=== PATIENT | male | born 1985 | race African-American/Black ===

== ENCOUNTER 2022-09-30 12:10 | Emergency (ER) | payer OTHER ==
--- OUTSIDE RECORDS SUMMARY | 2022-09-30 12:15 | XMS REPORT | Continuity of Care Document ---
:1985 Author Organization [facility] t Address [address] [place] [address] Care Team Providers Name Role Phone COCO GOOD Primary Care Physician Unavailable JAYCE WALDRON Attending Clinician Unavailable LARRY OLIVERA Attending Clinician Unavailable PEG ALEMAN Attending Clinician Unavailable REBECA FREITAS Attending Clinician Unavailable LARRY OLIVERA Admitting Clinician Unavailable PEG ALEMAN Admitting Clinician Unavailable Problems Condition Condition Condition Status Onset Resolution Last Treating Co mments Source Name Details Category Date Date Treatment Clinician Date Abscess of Problem Active CESAR MANTILLA abdominal S wall Health Attention Problem Active VICKY U deficit S hyperactiv Health ity disorder (ADHD) Intra-abdo Problem Active CESAR MANTILLA hernandez S adhesions Health Low back Problem Inactiv VICKY U pain e S Health Abdominal Problem Inactiv CESAR MANTILLA fluid e S collection Health Hematochez Problem Inactiv CHRI BREANA ia e S Health Postoperat Problem Inactiv CHRI BREANA reinier e S abdominal Health pain Nausea Problem Inactiv [facility] e S Health Encounter Problem Inactiv CESAR MANTILLA for change e S or removal Health of drains Allergies, Adverse Reactions, Alerts Allergy Allergy Status Severity Reaction(s) Onset Inactive Treating Comm ents Source Name Type Date Date Clinician Hydrocod Allergy Active Mild [facility]RISTU one to 6-22 S substanc 00:00: Health e 00 Acetamin Allergy Active Mild [facility] ophen to 6-22 S substanc 00:00: Health e 00 Social History Social Habit Start Date Stop Date Quantity Comments Source History of tobacco [facility] Health use Sex Assigned At [birth year] Male [facility] Health 00:00:00 00:00:00 Smoking Status Start Date Stop Date Source Smokes tobacco daily (finding) 2022-03-23 13:28:00 [facility] Medications Ordered Filled Start Stop Current Ordering Indication Dosage Frequency Signature Comments Components Source Medication Medication Date Date Medication? Clinician (SIG) Name Name Levofloxaci No 750mg Daily CHRI BREANA n 6-22 S (Levaquin) 15:13: Health 750 Mg TAB 00 Oxycodone/A No 1tab Every 4 CHR ISTU cetaminophe 6-22 Hours as S n (Percocet 15:13: needed for Health 5-325) 1 00 Pain Each TAB Doxycycline 2021- No 100mg Twice A C HRISTU Monohydrate 02-15 06-17 Day S (Doxycyclin 09:52: 00:00 Healt h e) 100 Mg 00 :00 CAPSULE Oxycodone/A 2021- No 1tab Every 6 CH RISTU cetaminophe - 05-30 Hours S n (Percocet 09:52: 00:00 Healt h 5-325) 1 00 :00 Each TAB Acetaminoph 2021- No 1tab Every 6 CH RISTU en/Hydrocod -23 05-25 Hours as S one Bitart 21:45: 00:00 needed for Health (Declo 00 :00 Severe 5/325) 1 Pain(7-10) Each TAB Clindamycin 2021- No 450mg Three CHR ISTU Hcl -23 05-25 Times A S (Cleocin) 21:45: 00:00 Day Health 150 Mg CAP 00 :00 Immunizations Ordered Immunization Filled Immunization Date Status Commen ts Source Name Name Covid-19 Pfizer Pedi 2021-11-07 Completed [facility] Health 00:00:00 Vital Signs Vital Name Observation Time Observation Value Comments Source BP Diastolic 2022-03-23 18:11:00 78 mm[Hg] [facility] BP Systolic 2022-03-23 18:11:00 138 mm[Hg] [facility] Heart Rate 2022-03-23 18:11:00 72 /min [facility] Respiratory rate 2022-03-23 18:11:00 16 /min [facility] Body Temperature 2022-03-23 18:11:00 98.0 [degF] [facility] BP Diastolic 2022-03-23 14:34:00 78 mm[Hg] [facility] BP Systolic 2022-03-23 14:34:00 138 mm[Hg] [facility] Heart Rate 2022-03-23 14:34:00 72 /min [facility] Respiratory rate 2022-03-23 14:34:00 16 /min [facility] BP Diastolic 2022-03-23 12:42:00 85 mm[Hg] [facility] BP Systolic 2022-03-23 12:42:00 131 mm[Hg] [facility] Heart Rate 2022-03-23 12:42:00 80 /min [facility] Respiratory rate 2022-03-23 12:42:00 16 /min [facility] Body Temperature 2022-03-23 12:42:00 98.0 [degF] [facility] BP Diastolic 2022-03-16 08:00:00 58 mm[Hg] [facility] BP Systolic 2022-03-16 08:00:00 138 mm[Hg] [facility] Heart Rate 2022-03-16 08:00:00 99 /min [facility] Respiratory rate 2022-03-16 08:00:00 16 /min [facility] Body Temperature 2022-03-16 08:00:00 98.0 [degF] [facility] BP Diastolic 2022-03-16 05:29:00 41 mm[Hg] [facility] BP Systolic 2022-03-16 05:29:00 105 mm[Hg] [facility] Heart Rate 2022-03-16 05:29:00 69 /min [facility] Respiratory rate 2022-03-16 05:29:00 18 /min [facility] Body Temperature 2022-03-16 05:29:00 97.7 [degF] [facility] BP Diastolic 2022-03-16 00:54:00 54 mm[Hg] [facility] BP Systolic 2022-03-16 00:54:00 118 mm[Hg] [facility] Heart Rate 2022-03-16 00:54:00 77 /min [facility] Respiratory rate 2022-03-16 00:54:00 18 /min [facility] Body Temperature 2022-03-16 00:54:00 97.7 [degF] [facility] BP Diastolic 2022-03-15 20:37:00 72 mm[Hg] [facility] BP Systolic 2022-03-15 20:37:00 114 mm[Hg] [facility] Heart Rate 2022-03-15 20:37:00 83 /min [facility] Respiratory rate 2022-03-15 20:37:00 18 /min [facility] Body Temperature 2022-03-15 20:37:00 97.5 [degF] [facility] BP Diastolic 2022-03-15 18:26:00 78 mm[Hg] [facility] BP Systolic 2022-03-15 18:26:00 140 mm[Hg] [facility] Heart Rate 2022-03-15 18:26:00 94 /min [facility] Respiratory rate 2022-03-15 18:26:00 18 /min [facility] BP Diastolic 2022-03-15 18:15:00 94 mm[Hg] [facility] BP Systolic 2022-03-15 18:15:00 129 mm[Hg] [facility] Heart Rate 2022-03-15 18:15:00 86 /min [facility] Respiratory rate 2022-03-15 18:15:00 16 /min [facility] Body Temperature 2022-03-15 18:15:00 98.5 [degF] [facility] BP Diastolic 2022-03-15 17:45:00 82 mm[Hg] [facility] BP Systolic 2022-03-15 17:45:00 139 mm[Hg] [facility] Heart Rate 2022-03-15 17:45:00 74 /min [facility] Body Temperature 2022-03-15 17:45:00 96.7 [degF] [facility] BP Diastolic 2022-03-15 17:30:00 64 mm[Hg] [facility] BP Systolic 2022-03-15 17:30:00 130 mm[Hg] [facility] Heart Rate 2022-03-15 17:30:00 77 /min [facility] Respiratory rate 2022-03-15 17:30:00 18 /min [facility] Body Temperature 2022-03-15 17:30:00 97.5 [degF] [facility] BP Diastolic 2022-03-15 17:15:00 75 mm[Hg] [facility] BP Systolic 2022-03-15 17:15:00 124 mm[Hg] [facility] Heart Rate 2022-03-15 17:15:00 81 /min [facility] Respiratory rate 2022-03-15 17:15:00 18 /min [facility] Body Temperature 2022-03-15 17:15:00 97.5 [degF] [facility] BP Diastolic 2022-03-15 17:00:00 75 mm[Hg] [facility] BP Systolic 2022-03-15 17:00:00 131 mm[Hg] [facility] Heart Rate 2022-03-15 17:00:00 86 /min [facility] Respiratory rate 2022-03-15 17:00:00 18 /min [facility] Body Temperature 2022-03-15 17:00:00 97.4 [degF] [facility] BP Diastolic 2022-03-15 16:45:00 77 mm[Hg] [facility] BP Systolic 2022-03-15 16:45:00 130 mm[Hg] [facility] Heart Rate 2022-03-15 16:45:00 83 /min [facility] Respiratory rate 2022-03-15 16:45:00 18 /min [facility] Body Temperature 2022-03-15 16:45:00 97.7 [degF] [facility] BP Diastolic 2022-03-15 16:30:00 72 mm[Hg] [facility] BP Systolic 2022-03-15 16:30:00 120 mm[Hg] [facility] Heart Rate 2022-03-15 16:30:00 83 /min [facility] Respiratory rate 2022-03-15 16:30:00 18 /min [facility] Body Temperature 2022-03-15 16:30:00 97.4 [degF] [facility] BP Diastolic 2022-03-15 16:25:00 74 mm[Hg] [facility] BP Systolic 2022-03-15 16:25:00 127 mm[Hg] [facility] Heart Rate 2022-03-15 16:25:00 65 /min [facility] Respiratory rate 2022-03-15 16:25:00 16 /min [facility] BP Diastolic 2022-03-15 16:20:00 80 mm[Hg] [facility] BP Systolic 2022-03-15 16:20:00 125 mm[Hg] [facility] Heart Rate 2022-03-15 16:20:00 60 /min [facility] Respiratory rate 2022-03-15 16:20:00 16 /min [facility] BP Diastolic 2022-03-15 16:15:00 79 mm[Hg] [facility] BP Systolic 2022-03-15 16:15:00 127 mm[Hg] [facility] Heart Rate 2022-03-15 16:15:00 69 /min [facility] Respiratory rate 2022-03-15 16:15:00 15 /min [facility] BP Diastolic 2022-03-15 16:10:00 81 mm[Hg] [facility] BP Systolic 2022-03-15 16:10:00 127 mm[Hg] [facility] Heart Rate 2022-03-15 16:10:00 78 /min [facility] Respiratory rate 2022-03-15 16:10:00 15 /min [facility] BP Diastolic 2022-03-15 16:05:00 81 mm[Hg] [facility] BP Systolic 2022-03-15 16:05:00 135 mm[Hg] [facility] Heart Rate 2022-03-15 16:05:00 63 /min [facility] Respiratory rate 2022-03-15 16:05:00 16 /min [facility] BP Diastolic 2022-03-15 16:00:00 76 mm[Hg] [facility] BP Systolic 2022-03-15 16:00:00 124 mm[Hg] [facility] Heart Rate 2022-03-15 16:00:00 75 /min [facility] Respiratory rate 2022-03-15 16:00:00 14 /min [facility] BP Diastolic 2022-03-15 15:55:00 83 mm[Hg] [facility] BP Systolic 2022-03-15 15:55:00 136 mm[Hg] [facility] Heart Rate 2022-03-15 15:55:00 77 /min [facility] Respiratory rate 2022-03-15 15:55:00 13 /min [facility] 2022-03-15 15:50:00 81 mm[Hg] [facility] Health BP Systolic 2022-03-15 15:50:00 132 mm[Hg] [facility] Health Heart Rate 2022-03-15 15:50:00 78 /min [facility] Health Respiratory rate 2022-03-15 15:50:00 14 /min [facility] Health BP Diastolic 2022-03-15 15:45:00 81 mm[Hg] [facility] BP Systolic 2022-03-15 15:45:00 135 mm[Hg] [facility] Heart Rate 2022-03-15 15:45:00 91 /min [facility] Respiratory rate 2022-03-15 15:45:00 12 /min [facility] Di[facility] 2022-03-15 15:39:00 64 mm[Hg] [facility] BP Systolic 2022-03-15 15:39:00 120 mm[Hg] [facility] Heart Rate 2022-03-15 15:39:00 72 /min [facility] Respiratory rate 2022-03-15 15:39:00 20 /min [facility] Body Temperature 2022-03-15 15:39:00 97.3 [degF] [facility] BP Diastolic 2022-03-15 09:00:00 75 mm[Hg] [facility] BP Systolic 2022-03-15 09:00:00 126 mm[Hg] [facility] Heart Rate 2022-03-15 09:00:00 71 /min [facility] Respiratory rate 2022-03-15 09:00:00 18 /min [facility] Body Temperature 2022-03-15 09:00:00 98.2 [degF] [facility] [place] Procedures Procedure Date / Time Performed Performing Clinician [facility] e Computed tomography of 2022-03-23 00:00:00 [facility] abdomen and pelvis with contrast RELEASE OMENTUM, 2022-03[facility]15 [facility]OS[facility] RELEASE PERITONEUM, 2022-03-15 00:00:00 [facility] PERCUTANEOUS ENDOSCOPIC APPROACH DRAINAGE OF ABD WALL WITH 2022-03-15 00:00:00 [facility] DRAIN DEV, PERC ENDO APPROACH ROBOTIC ASSISTED PROCEDURE 2022-03-15 00:00:00 C [facility] OF TRUNK, PERC ENDO APPROACH ECG (electrocardiogram) 2022-03-10 00:00:00 [facility] X-ray of chest, two views 2022-03-10 00:00:00 CH [facility] 12 lead ECG interpretation 2022-03-10 00:00:00 C [facility] Encounters Start End Encounter Admission Attending Care Care Encounter Source Date/Time Date/Time Type Type Clinicians Facility Department ID 2022-02-13 Inpatient DUGLAS ARDON [id number] [facility] 19:32:00 11 [facility] 2022-02-13 Inpatient DUGLAS ARDON [id number] [facility] 19:32:00 11 [facility] 2022-03-23 2022-03-23 Departed ER DUGLAS WALDRON [id number] [facility] 12:34:00 18:12:00 Emergency JAYCE [address] [facility] 2022-03-15 2022-03-16 Discharged DUGLAS BORREGO SASKIA [id number] [facility] 08:49:00 09:50:00 Inpatient LARRY 66 [facility] 2022-02-14 2022-02-15 Inpatient ER DUGLAS ALEMAN MED [id number] [facility] 14:15:00 10:54:00 PEG 00 [facility] 2022-02-14 2022-02-15 Inpatient ER DUGLAS ALEMAN MED [id number] [facility] 14:15:00 10:54:00 PEG 00 [facility] 2022-02-13 2022-02-13 Emergency ER DUGLAS FREITAS [id number] [facility] 19:34:00 22:00:00 REBECA [id number] [facility] 2022-02-13 2022-02-13 Emergency ER DUGLAS FREITAS [id number] [facility] 19:34:00 22:00:00 REBECA [id number] [facility] 2022-02-13 2022-02-13 Emergency ER DUGLAS FREITAS [id number] [facility] 19:34:00 22:00:00 REBECA 12 S [facility] Results Test Description Test Time Test Comments Results Result Comments Source Serum or plasma chloride measurement (moles/volume) 13:15:00 Test Item Value Reference Range Interpretation Comme nts Chloride Level (test code = 2075-0) 100 98-107 [facility] or plasma carbon dioxide measurement (moles/volume) 2022-03-23 13:15:00 Test Item Value Reference Range Interpretation Comments Carbon Dioxide Level (test code = 27 21-32 8-9) [facility] or plasma anion [id number] 13:15:00 Test Item Value Reference Range Interpretation Comments Anion Gap (test code = 87163-1) 4.0 3.0-11.0 [facility] or plasma urea nitrogen measurement (mass/volume)2022-03-23 13:15:00 Test Item Value Reference Range Interpretation Comments Blood Urea Nitrogen (test code = 12.0 7.0-18.0 3094-0) [facility] or plasma creatinine measurement (mass/volume)2022-03-23 13:15:00 Test Item Value Reference Range Interpretation Comments Creatinine (test code = 2160-0) 1.170 0.700-1.30 [facility] HealthGFR estimate [id number] 13:15:00 Test Item Value Reference Range Interpretation Comments Estimat Glomerular Filtration Rate > 60 >60 (test code = 884397369) [facility]um or plasma urea nitrogen/creatinine mass [id number] 13:15:00 Test Item Value Reference Range Interpretation Comments BUN/Creatinine Ratio (test code = 10.25 3097-3) [facility] or plasma glucose measurement (mass/volume)2022-03-23 13:15:00 Test Item Value Reference Range Interpretation Comments Glucose Level (test code = 2345-7) 92 74-106 [facility]um or plasma calcium measurement (mass/volume)2022-03-23 13:15:00 Test Item Value Reference Range Interpretation Comments Calcium Level (test code = 28408-2) 10.1 8.5-10.1 [facility]um or plasma total bilirubin measurement (mass/volume) 2022-03-23 13:15:00 Test Item Value Reference Range Interpretation Comments Total Bilirubin (test code = 1974-2) 0.3 0.2-1.0 [facility]um or plasma aspartate aminotransferase measurement (enzymatic activity/volume)2022-03-23 13:15:00 Test Item Value Reference Range Interpretation Comments Aspartate Amino Transf (AST/SGOT) (test 40 15-37 code = 1920-8) [facility] Health[facility]um or plasma alanine aminotransferase measurement (enzymatic activity/volume)2022-03-23 13:15:00 Test Item Value Reference Range Interpretation Comments Alanine Aminotransferase (ALT/SGPT) 87 16-61 (test code = 1742-6) [facility] Health[facility]um or plasma protein measurement (mass/volume)2022-03-23 13:15:00 Test Item Value Reference Range Interpretation Comments Total Protein (test code = 2885-2) 9.3 6.4-8.2 [facility] HealthSerum or plasma albumin measurement (mass/volume)2022-03-23 13:15:00 Test Item Value Reference Range Interpretation Comments Albumin (test code = 1751-7) 3.6 3.4-5.0 [facility] HealthSerum or plasma alkaline phosphatase measurement (enzymatic activity/volume)2022-03-23 13:15:00 Test Item Value Reference Range Interpretation Comments Alkaline Phosphatase (test code = 141 45-117 6768-6) [facility] HealthLactate ser/[id number] 13:15:00 Test Item Value Reference Range Interpretation Comments Lactic Acid Level (test code = 2524-7) 1.1 0.4-1.9 [facility] HealthSerum or plasma procalcitonin measurement (mass/volume)2022-03-23 13:15:00 Test Item Value Reference Range Interpretation Comments Procalcitonin (test code = 14225-6) < 0.05 0.0-0.5 [facility] HealthAutomated blood leukocyte count (number/volume)2022-03-23 13:15:00 Test Item Value Reference Range Interpretation Comments White Blood Count (test code = 6690-2) 8.3 4.5-10.0 [facility] HealthBlood erythrocytes automated count (number/volume)2022-03-23 13:15:00 Test Item Value Reference Range Interpretation Comments Red Blood Count (test code = 789-8) 4.74 4.70-6.10 [facility] HealthBlood hemoglobin measurement (mass/volume)2022-03-23 13:15:00 Test Item Value Reference Range Interpretation Comments Hemoglobin (test code = 718-7) 14.6 14.0-18.0 [facility] HealthAutomated blood hematocrit (volume fraction)2022-03-23 13:15:00 Test Item Value Reference Range Interpretation Comments Hematocrit (test code = 4544-3) 43.4 42.0-52.0 [facility] HealthAutomated erythrocyte mean corpuscular volume (MCV) measurement 2022-03-23 13:15:00 Test Item Value Reference Range Interpretation Comments Mean Corpuscular Volume (test code = 91.6 80.0-97.0 787-2) [facility] HealthAutomated erythrocyte mean corpuscular hemoglobin (mass per erythrocyte)2022-03-23 13:15:00 Test Item Value Reference Range Interpretation Comments Mean Corpuscular Hemoglobin (test code 30.8 27.0-32.0 = 785-6) [facility] HealthAutomated erythrocyte mean corpuscular hemoglobin concentration (MCHC) measurement (mass/volume)2022-03-23 13:15:00 Test Item Value Reference Range Interpretation Comments Mean Corpuscular Hemoglobin Concent 33.6 32.0-36.0 (test code = 786-4) [facility] HealthAutomated erythrocyte distribution width [id number] 13:15:00 Test Item Value Reference Range Interpretation Comments Red Cell Distribution Width (test code 12.6 0.0-15.5 = 788-0) [facility] HealthAutomated blood platelet count (count/volume)2022-03-23 13:15:00 Test Item Value Reference Range Interpretation Comments Platelet Count (test code = 777-3) 398 130-400 [facility] HealthAutomated blood platelet mean volume [id number] 13:15:00 Test Item Value Reference Range Interpretation Comments Mean Platelet Volume (test code = 8.7 9.2-12.2 98680-5) [facility] HealthAutomated blood neutrophil count as percentage of total sncezqerch5969-39-05 13:15:00 Test Item Value Reference Range Interpretation Comments Neutrophils (%) (Auto) (test code = 59.3 50-80 770-8) [facility] HealthAutomated blood immature granulocyte count as percentage of total lzihycoket7035-67-03 13:15:00 Test Item Value Reference Range Interpretation Comments Immature Granulocyte % (Auto) (test 1.10 0.0-0.43 code = 31254-2) [facility] HealthAutomated blood lymphocyte count as percentage of total saxplsafem0943-71-88 13:15:00 Test Item Value Reference Range Interpretation Comments Lymphocytes (%) (Auto) (test code = 24.7 20.0-45.0 736-9) [facility] HealthAutomated blood monocyte count as percentage of total leukocytes 2022-03-23 13:15:00 Test Item Value Reference Range Interpretation Comments Monocytes (%) (Auto) (test code = 8.4 2-10 5905-5) [facility] HealthAutomated blood eosinophil count as percentage of total avxewjdjqh0475-22-11 13:15:00 Test Item Value Reference Range Interpretation Comments Eosinophils (%) (Auto) (test code = 5.9 0-6 713-8) [facility] HealthAutomated blood basophil count as percentage of total leukocytes 2022-03-23 13:15:00 Test Item Value Reference Range Interpretation Comments Basophils (%) (Auto) (test code = 0.6 0-3 706-2) [facility] HealthAutomated blood nucleated erythrocyte count as percentage of total nmlmyycpnb9780-37-35 13:15:00 Test Item Value Reference Range Interpretation Comments Nucleated Red Blood Cells % (test code 0.0 0-0.2 = 19344-6) [facility] HealthAutomated blood neutrophil count (number/volume)2022-03-23 13:15:00 Test Item Value Reference Range Interpretation Comments Neutrophils # (Auto) (test code = 4.9 1.4-7.0 751-8) [facility] HealthAutomated blood immature granulocyte count as percentage of total obutldxpnz6308-36-36 13:15:00 Test Item Value Reference Range Interpretation Comments Immature Granulocyte # (Auto) (test 0.0900 0.0-0.0310 code = 78975-4) [facility] HealthAutomated blood lymphocyte count (number/volume)2022-03-23 13:15:00 Test Item Value Reference Range Interpretation Comments Lymphocytes # (Auto) (test code = 2.1 1.2-4.0 731-0) [facility] HealthBlood monocytes automated count (number/volume)2022-03-23 13:15:00 Test Item Value Reference Range Interpretation Comments Monocytes # (Auto) (test code = 742-7) 0.7 0.1-0.8 [facility] HealthAutomated blood eosinophil [id number] 13:15:00 Test Item Value Reference Range Interpretation Comments Eosinophils # (Auto) (test code = 0.5 0.0-0.6 711-2) [facility] HealthAutomated blood basophil count (number/volume)2022-03-23 13:15:00 Test Item Value Reference Range Interpretation Comments Basophils # (Auto) (test code = 704-7) 0.1 0.0-0.3 [facility] HealthAutomated blood leukocyte count corrected for nucleated razaosffingz2085-28-73 13:15:00 Test Item Value Reference Range Interpretation Comments Nucleated Red Blood Cells # (test code 0.000 0-0.012 = 37968-6) [facility] HealthWhole blood prothrombin [id number] 13:15:00 Test Item Value Reference Range Interpretation Comments Prothrombin Time (test code = 5964-2) 12.5 10.2-12.9 [facility] HealthINR in Platelet poor plasma by Coagulation [id number] 13:15:00 Test Item Value Reference Range Interpretation Comments Prothromb Time International Ratio 1.1 0.9-1.1 (test code = 6301-6) [facility] HealthPartial thromboplastin time (PTT) in platelet poor plasma 2022-03-23 13:15:00 Test Item Value Reference Range Interpretation Comments Activated Partial Thromboplast Time 39.9 25.7-36.7 (test code = 85303-7) [facility] HealthSodium measurement (moles/volume)2022-03-23 13:15:00 Test Item Value Reference Range Interpretation Comments Sodium Level (test code = 71165-0) 131 131-143 [facility] HealthSerum or plasma potassium measurement (moles/volume)2022-03-23 13:15:00 Test Item Value Reference Range Interpretation Comments Potassium Level (test code = 2823-3) 4.7 3.5-5.1 [facility] HealthAutomated urine color mjwxpnicdaafa9527-18-80 13:11:00 Test Item Value Reference Range Interpretation Comments Urine Color (test code = 78722-2) Colorless Yellow [facility] HealthClarity in Urine by Refractometry [id number] 13:11:00 Test Item Value Reference Range Interpretation Comments Urine Appearance (test code = 33978-0) Clear Clear [facility] HealthUrine pH measurement by test [id number] 13:11:00 Test Item Value Reference Range Interpretation Comments Urine pH (test code = 5803-2) 6.5 5.0-8.0 [facility] HealthAutomated urine specific gravity by vkghzxdhwhkwf7268-16-03 13:11:00 Test Item Value Reference Range Interpretation Comments Urine Specific [place] (test code = 1.017 1.005-1.030 48863-3) [facility] HealthAutomated urine protein nytsfcgcydj9001-02-95 13:11:00 Test Item Value Reference Range Interpretation Comments Urine Protein (test code = 09838764) Negative Negative [facility] HealthAutomated urine glucose noylebwed6358-70-12 13:11:00 Test Item Value Reference Range Interpretation Comments Urine Glucose (UA) (test code = Negative Negative 92069-4) [facility] HealthUrine ketones detection by automated test [id number] 13:11:00 Test Item Value Reference Range Interpretation Comments Urine Ketones (test code = 06649-2) Negative Negative [facility] HealthUrine erythrocytes detection by automated trebpo4778-22-53 13:11:00 Test Item Value Reference Range Interpretation Comments Urine Occult Blood (test code = Negative Negative 65299-6) [facility] HealthAutomated urine nitrite [id number] 13:11:00 Test Item Value Reference Range Interpretation Comments Urine Nitrite (test code = 58165-7) Negative Negative [facility] HealthUrine total bilirubin detection by automated test [id number] 13:11:00 Test Item Value Reference Range Interpretation Comments Urine Bilirubin (test code = Negative Negative 30908-3) [facility] HealthAutomated urine urobilinogen vpnjwmkresk2693-24-46 13:11:00 Test Item Value Reference Range Interpretation Comments Urine Urobilinogen (test code = Normal Normal 62820833) [facility] HealthUrine leukocytes detection by automated [id number] 13:11:00 Test Item Value Reference Range Interpretation Comments Urine Leukocyte Esterase (test code Negative Negative = [id number]) [facility]
[2022-09-30] MEDS ORDERED: dexAMETHasone 10 MG/ML VIAL ONE (12:51)
[2022-09-30] MEDS ORDERED: KETOROLAC 30 MG/ML INJ ONE (12:52)
--- NOTE | 2022-09-30 13:59 | RAD REPORT ---
EXAM DESCRIPTION: RAD - Shoulder Left 2 View - 09/30/2022 1:50 pm CLINICAL HISTORY: Numbness/tingling COMPARISON: No comparisons FINDINGS/IMPRESSION: No acute fracture. No malalignment. Moderate left glenohumeral joint degenerati ve changes.
--- NOTE | 2022-09-30 13:59 | RAD REPORT ---
EXAM DESCRIPTION: RAD - C Spine Ap/Lat - 09/30/2022 1:50 pm CLINICAL HISTORY: Pain COMPARISON: No comparisons FINDINGS: No acute fracture. No malalignment. Multilevel cervical spondylosis. Mild disc height loss and moderate endplate spurring is present at C4-5, C5-6, C6-7. IMPRESSION: No acute osseous abnormality involving the cervical spine.
--- NOTE | 2022-09-30 14:14 | ER ---
Nurse's Notes [facility] Name: Ramiro Chavez Age: 37 yrs Sex: Male : 1985 Arrival Date: 09/30/2022 Time: 12:14 Bed 20 Private MD: Diagnosis: Radiculopathy, cervical region;Pain in left shoulder-Arthritis Presentation: 09/30 12:34 Chief complaint: Patient states: client stated left shoulder pain started about 3 weeks vg1 ago. stated he feels like a muscle is pulling when he moves his head and gets numbness and tingling. Coronavirus screen: Vaccine status: Patient reports receiving the 2nd dose of the covid vaccine. At this time, the client does not indicate any symptoms associated with coronavirus-19. Ebola Screen: No symptoms or risks identified at this time. Initial Sepsis Screen: Does the patient meet any 2 criteria? No. Patient's initial sepsis screen is negative. Does the patient have a suspected source of infection? No. Patient's initial sepsis screen is negative. Risk Assessment: Do you want to hurt yourself or someone else? Patient reports no desire to harm self or others. Onset of symptoms was September 30, 2022. 12:34 Method Of Arrival: Ambulatory vg1 12:34 Acuity: GWYN 3 vg1 Triage Assessment: 12:36 General: Appears in no apparent distress. uncomfortable, Behavior is calm, cooperative, vg1 appropriate for age. Pain: Complains of pain in left arm Pain does not radiate. Pain currently is 8 out of 10 on a pain scale. Quality of pain is described as tingling, throbbing, numb, Pain began gradually, Is continuous, Alleviated by nothing. Aggravated by increased activity, Noted to be resistant to movement, Also complains of no other associated symptoms. Musculoskeletal: Circulation, motion, and sensation intact. Capillary refill < 3 seconds, Range of motion: intact in all extremities. Historical: - Allergies: 12:37 No Known Allergies; vg1 - Home Meds: 12:37 None [Active]; vg1 - PMHx: 12:37 None; vg1 - PSHx: 12:37 Appendectomy; vg1 - Immunization history:: Client reports receiving the 2nd dose of the Covid vaccine, Flu vaccine is not up to date. - Social history:: Smoking status: Patient reports the use of cigarette tobacco products, smokes one-half pack cigarettes per day. - Family history:: not pertinent. - Hospitalizations: : No recent hospitalization is reported. Screenin:45 [facility] ED Fall Risk Assessment (Adult) History of falling in the last 3 months, mb9 including since admission No falls in past 3 months (0 pts) Confusion or Disorientation No (0 pts) Intoxicated or Sedated No (0 pts) Impaired Gait No (0 pts) Mobility Assist Device Used No (0 pt) Altered Elimination No (0 pt) Score/Fall Risk Level 0 - 2 = Low Risk Maintained a safe environment. Abuse screen: Denies threats or abuse. Nutritional screening: No deficits noted. Tuberculosis screening: No symptoms or risk factors identified. Assessment: 12:46 General: Appears in no apparent distress. Behavior is calm, cooperative, appropriate mb9 for age. Pain: Complains of pain in left shoulder Pain radiates to left arm Pain currently is 8 out of 10 on a pain scale. Quality of pain is described as burning, throbbing, Is continuous, Aggravated by increased activity. Neuro: Silva Agitation-Sedation Scale (RASS): 0 - Alert and Calm Level of Consciousness is awake, alert, obeys commands, Oriented to person, place, time, situation, Appropriate for age. Cardiovascular: Rhythm is regular. Respiratory: Airway is patent Respiratory effort is even, unlabored, Respiratory pattern is regular, symmetrical. GI: Abdomen is round non-distended. : No signs and/or symptoms were reported regarding the genitourinary system. EENT: No signs and/or symptoms were reported regarding the EENT system. Derm: Skin is intact, is healthy with good turgor, Skin is dry, Skin is normal, Skin temperature is warm. Musculoskeletal: Capillary refill < 3 seconds, Range of motion: limited in left arm. 13:55 Reassessment: Patient states feeling better. Patient states symptoms have improved. mb9 Neuro: Level of Consciousness is awake, alert, obeys commands, Oriented to person, place, time, situation, Appropriate for age. Respiratory: Airway is patent. Derm: Skin is normal. Vital Signs: 12:38 BP 137 / 97; Pulse 97; Resp 18 S; Temp 98.8(TE); Pulse Ox 99% on R/A; Weight 104.33 kg vg1 (R); Height 5 ft. 6 in. (167.64 cm) (R); Pain 8/10; 14:15 BP 134 / 94; Pulse 84; Pulse Ox 100% on R/A; Pain 2/10; mb9 12:38 Body Mass Index 37.12 (104.33 kg, 167.64 cm) vg1 ED Course: 12:14 Patient arrived in ED. as 12:28 Andrew Melgar MD is Attending Physician. rn 12:36 Triage completed. vg1 12:38 Arm band placed on. mb9 12:43 Carolina Grant, RN is Primary Nurse. mb9 12:50 Inserted saline lock: 20 gauge in right antecubital area, using aseptic technique. mb9 13:52 XRAY C Spine Ap/lat In Process Unspecified. EDMS 13:52 XRAY Shoulder LEFT 2 view In Process Unspecified. EDMS 14:42 No provider procedures requiring assistance completed. IV discontinued, intact, mb9 bleeding controlled, No redness/swelling at site. Pressure dressing applied. Administered Medications: 12:59 Drug: Decadron - Dexamethasone 10 mg Route: IVP; Site: left antecubital; mb9 14:15 Follow up: Response: No adverse reaction mb9 12:59 Drug: Ketorolac 30 mg Route: IVP; Site: left antecubital; mb9 14:15 Follow up: Response: No adverse reaction mb9 Medication: 14:42 VIS not applicable for this client. mb9 Outcome: 14:14 Discharge ordered by . rn 14:42 Discharged to home ambulatory. mb9 14:42 Condition: stable 14:42 Discharge instructions given to patient, Instructed on discharge instructions, Demonstrated understanding of instructions, follow-up care, medications, Prescriptions given X 3. 14:43 Patient left the ED. mb9 Signatures: Dispatcher [employer] Chrissy Blake Roman, MD MD rn Garcia, Victoria RN RN vg1 Carolina Grant, RN RN mb9 Corrections: (The following items were deleted from the chart) 12:39 12:38 Temp 98.8F Temporal; 104.33 kg Reported; Height 5 ft. 6 in. Reported; BMI: 37.1; vg1 Pain 8/10; vg1
--- NOTE | 2022-09-30 14:14 | EDPHYS ---
Physician Documentation [facility] Name: Ramiro Chavez Age: 37 yrs Sex: Male : 1985 Arrival Date: 09/30/2022 Time: 12:14 Bed 20 Private MD: ED Physician Andrew Melgar HPI: 09/30 13:51 This 37 yrs old Black Male presents to ER via Ambulatory with complaints of Shoulder rn Pain, Numbness Of Arm. 13:51 The patient or guardian complains of pain, that is acute. rn 13:51 left shoulder and left trapezius. Onset: The symptoms/episode began/occurred 3 week(s) rn ago. Modifying factors: the symptoms are alleviated by remaining still, The symptoms are aggravated by lifting weight, movement, rotation of arm. Associated signs and symptoms: Pertinent negatives: abdominal pain, chest pain, shortness of breath, Weakness in left arm. Severity of symptoms: At their worst the symptoms were moderate, in the emergency department the symptoms have improved. The patient has not experienced similar symptoms in the past. The patient has not recently seen a physician. Pt is right handed, works construction, presents with 3 weeks of intermittent left shoulder and arm pain/tingling. No direct trauma. No weakness. Reports symptoms worse when turns or angles head/neck. No chest pain/sob/abd pain.. Historical: - Allergies: 12:37 No Known Allergies; vg1 - Home Meds: 12:37 None [Active]; vg1 - PMHx: 12:37 None; vg1 - PSHx: 12:37 Appendectomy; vg1 - Immunization history:: Client reports receiving the 2nd dose of the Covid vaccine, Flu vaccine is not up to date. - Social history:: Smoking status: Patient reports the use of cigarette tobacco products, smokes one-half pack cigarettes per day. - Family history:: not pertinent. - Hospitalizations: : No recent hospitalization is reported. ROS: 13:51 Constitutional: Negative for fever, chills, and weight loss, Neck: Negative for injury, rn pain, and swelling, Cardiovascular: Negative for chest pain, palpitations, and edema, Respiratory: Negative for shortness of breath, cough, wheezing, and pleuritic chest pain, Abdomen/GI: Negative for abdominal pain, nausea, vomiting, diarrhea, and constipation, Back: Negative for injury and pain, MS/Extremity: + left shoulder aching and tingling to left arm Skin: Negative for injury, rash, and discoloration, Neuro: Negative for headache, weakness, and seizure. Exam: 13:51 Constitutional: This is a well developed, well nourished patient who is awake, alert, rn and in no acute distress. Head/Face: Normocephalic, atraumatic. Neck: Trachea midline, no thyromegaly or masses palpated, and no cervical lymphadenopathy. Supple, full range of motion without nuchal rigidity, or vertebral point tenderness. No Meningismus. Cardiovascular: Regular rate and rhythm. No pulse deficits. Respiratory: No increased work of breathing, no retractions or nasal flaring. Skin: Warm, dry, no rashes MS/ Extremity: Pulses equal, no cyanosis. Neurovascular intact. Full, normal range of motion. Equal circumference. Neuro: Awake and alert, GCS 15, oriented to person, place, time, and situation. Cranial nerves II-XII grossly intact. Motor strength 5/5 in all extremities. Sensory grossly intact. Cerebellar exam normal. Vital Signs: 12:38 BP 137 / 97; Pulse 97; Resp 18 S; Temp 98.8(TE); Pulse Ox 99% on R/A; Weight 104.33 kg vg1 (R); Height 5 ft. 6 in. (167.64 cm) (R); Pain 8/10; 14:15 BP 134 / 94; Pulse 84; Pulse Ox 100% on R/A; Pain 2/10; mb9 12:38 Body Mass Index 37.12 (104.33 kg, 167.64 cm) vg1 MDM: 12:28 Patient medically screened. rn 14:11 Differential diagnosis: DJD, tendonitis, radiculopathy, muscle cramps, overuse injury. rn Data reviewed: vital signs, nurses notes, radiologic studies, plain films, and as a result, I will discharge patient. Test interpretation: by ED physician or midlevel provider: plain radiologic studies, Independent interpretation of Xrays by me: Xray Cspine and left shoulder without acute fracture or malalignment. Counseling: I had a detailed discussion with the patient and/or guardian regarding: the historical points, exam findings, and any diagnostic results supporting the discharge/admit diagnosis, radiology results, the need for outpatient follow up, to return to the emergency department if symptoms worsen or persist or if there are any questions or concerns that arise at home. Response to treatment: the patient's symptoms have mildly improved after treatment. Special discussion: I discussed with the patient/guardian in detail that at this point there is no indication for admission to the hospital. It is understood, however, that if the symptoms persist or worsen the patient needs to return immediately for re-evaluation. 09/30 12:43 Order name: XRAY C Spine Ap/lat; Complete Time: 14:02 rn 09/30 12:43 Order name: XRAY Shoulder LEFT 2 view; Complete Time: 14:02 rn 09/30 12:43 Order name: IV Start; Complete Time: 12:59 rn Administered Medications: 12:59 Drug: Decadron - Dexamethasone 10 mg Route: IVP; Site: left antecubital; mb9 14:15 Follow up: Response: No adverse reaction mb9 12:59 Drug: Ketorolac 30 mg Route: IVP; Site: left antecubital; mb9 14:15 Follow up: Response: No adverse reaction mb9 Disposition Summary: 09/30/22 14:14 Discharge Ordered Location: Home rn Problem: an ongoing problem rn Symptoms: have improved rn Condition: Stable rn Diagnosis - Radiculopathy, cervical region rn - Pain in left shoulder - Arthritis rn Followup: rn - With: Private Physician - When: As needed - Reason: Recheck today's complaints, Re-evaluation by your physician Discharge Instructions: - Discharge Summary Sheet rn - Joint Pain rn - Arthritis rn - Cervical Radiculopathy rn - Shoulder Pain rn Forms: - Medication Reconciliation Form rn - Thank You Letter rn - Antibiotic auditor internal - Prescription Opioid Use rn Prescriptions: - Ibuprofen 800 mg Oral Tablet - take 1 tablet by ORAL route every 12 hours As needed take with food; 20 tablet; rn Refills: 0, Product Selection Permitted - Cyclobenzaprine 10 mg Oral Tablet - take 1 tablet by ORAL route every 8 hours As needed; 10 tablet; Refills: 0, rn Product Selection Permitted - Medrol (Nathaniel) 4 mg Oral Tablets, Dose Pack - take 1 tablet by ORAL route as directed - follow package instructions; 1 rn packet; Refills: 0, Product Selection Permitted Signatures: Dispatcher [employer] Andrew Chen MD MD rn Garcia, Victoria RN RN viet1 Juanita Carolina Bell, RN RN mb9
[2022-09-30 14:50] VITALS: TEMP 98.8
[2022-09-30 14:51] VITALS: BP 134/94; O2SAT 100
== END 2022-09-30 14:43 | disposition home or self-care (01) ==
LOC: ER 12:10
DX: M54.12 Radiculopathy, cervical region (principal); M19.012 Primary osteoarthritis, left shoulder; F17.210 Nicotine dependence, cigarettes, uncomplicated
CPT/HCPCS: 72040; 73030; 96375; 96374; 99284; J1100